=== PATIENT | female | born 1940 | race Caucasian/White ===

== ENCOUNTER → 2017-06-01 | Emergency (ER) | payer OTHER ==
[~2017-06-01] VITALS: Ht 162.6 cm; Wt 91.2 kg
[~2017-06-01] MED LIST: ALDACTONE25 MG; AVAPRO150 MG; FORTAMET1000 MG; GLIMEPIRIDE4 MG; KEPPRA500 MG; LASIX20 MG; SIMVASTATIN20 MG; SYNTHROID75 MCG
== END | disposition home or self-care (01) ==
LOC: ER 10:54
DX: S61.412A Laceration without foreign body of left hand, initial encounter (principal); W54.0XXA Bitten by dog, initial encounter; Y93.89 Activity, other specified; Y92.018 Other place in single-family (private) house as the place of occurrence of the external cause; Y99.8 Other external cause status

== ENCOUNTER 2018-03-05 07:21 | Outpatient (CLI) | payer OTHER | END 2018-03-05 07:33 | disposition home or self-care (01) | LOC: NUCLEAR 07:21 | DX: E11.9 Type 2 diabetes mellitus without complications (principal) | CPT/HCPCS: 78264; A9541 ==

== ENCOUNTER → 2019-06-02 06:00 | Outpatient (CLI) | payer OTHER ==
[~2019-06-02 06:00] MED LIST changes: +ACTICAL SOFTGE1 EACH PO; +COZAAR25 MG PO; +DOCUSATE PO; +GABAPENTIN PO; +OSTERA TABLET1 EACH PO; +VIT E PO; +ZOCOR20 MG PO
== END | disposition home or self-care (01) ==
LOC: LAB 06:00 → EDBD 06:00 → ADM 07:30 → CIR.AMB 06-07 07:00 → EDSTATUS 06-07 07:30 → ADM 06-07 07:30 → EDBD 06-07 07:30 → CIR.AMB 06-07 07:30
DX: R22.41 Localized swelling, mass and lump, right lower limb (principal); Z01.810 Encounter for preprocedural cardiovascular examination; Z01.811 Encounter for preprocedural respiratory examination; Z01.812 Encounter for preprocedural laboratory examination